=== PATIENT | female | born 1950 | race Caucasian/White ===

== ENCOUNTER 2023-11-26 09:15 | Emergency (ER) | payer MEDICARE, OTHER ==
[~2023-11-26] VITALS: Ht 167.6 cm; Wt 70.0 kg
[2023-11-26 09:16] VITALS: TEMP 98.2
[2023-11-26 11:00] VITALS: BP 122/55; PULSE 68; RESP 13; O2SAT 99
== END 2023-11-26 11:57 | disposition home or self-care (01) ==
LOC: ER 09:15
DX: S09.8XXA Other specified injuries of head, initial encounter (principal); J45.909 Unspecified asthma, uncomplicated; Z88.8 Allergy status to other drugs, medicaments and biological substances; Z72.89 Other problems related to lifestyle; W01.0XXA Fall on same level from slipping, tripping and stumbling without subsequent striking against object, initial encounter; Y93.89 Activity, other specified; Y92.89 Other specified places as the place of occurrence of the external cause; Y99.8 Other external cause status
CPT/HCPCS: 70450; 72125; 99284